=== PATIENT | male | born 1965 | race Caucasian/White ===

== ENCOUNTER 2022-02-09 13:39 | Emergency (ER) | payer OTHER ==
[~2022-02-09] VITALS: Ht 180.3 cm; Wt 77.1 kg
[2022-02-09] MEDS ORDERED: EMTRICITABINE-1 EACH PO (14:55)
== END 2022-02-09 19:27 | disposition home or self-care (01) ==
LOC: ER 13:39
DX: S62.648A Nondisplaced fracture of proximal phalanx of other finger, initial encounter for closed fracture (principal); X58.XXXA Exposure to other specified factors, initial encounter; Y93.9 Activity, unspecified; Y92.9 Unspecified place or not applicable; Y99.9 Unspecified external cause status